=== PATIENT | male | born 1955 | race Caucasian/White ===

== ENCOUNTER → 2016-07-24 | Outpatient (CLI) | payer MEDICARE, OTHER ==
[~2016-07-24] MED LIST: ASPI325T6 PO; BUSPAR DIVIDOSE15 MG PO; BUSPAR10 MG PO; CELEXA40 MG PO; DESYREL 100MG100 MG PO; EFFEXOR 75M75 MG/TAB PO; EFFEXOR XR75 MG/CAP PO; EFFEXOR-XR150 MG PO; FLEXERIL 1010 MG/TAB PO; KLONOPIN 1MG1 MG PO; LAMICTAL 100MG100 MG PO; LAMICTAL200 MG PO; LIDODERM PATCH TP; METHADONE H10 MG/TAB PO; MINIPRESS 5M5 MG/CAP PO; MINIPRESS2 MG PO; NEURONTIN300 MG/CAP PO; NEURONTIN600 MG/TAB PO; NORCO 325 MG-101 TAB PO; NORCO 325 MG-7.1 TAB PO; PERIACTIN 4MG TA4 MG PO; PROAIR HFA0.09 MG/AC IH; PROZAC 20MG20 MG PO; RITE AID FISH1000 MG PO; VICODIN 5/5001 UDTAB PO; VISTARIL50 MG PO; XANAX 0.5MG0.5 MG PO; ZOCOR 20MG20 MG PO; ZOLOFT 100MG100 MG PO
== END ==
LOC: COL.RAD 14:21
DX: M25.561 Pain in right knee (principal); Z96.651 Presence of right artificial knee joint

== ENCOUNTER 2016-10-23 11:18 | Inpatient (IN) | payer MEDICARE, OTHER ==
[~2016-10-23] VITALS: Ht 193 cm; Wt 122.0 kg
[~2016-10-23 11:18] MED LIST changes: -BUSPAR DIVIDOSE15 MG PO; -EFFEXOR 75M75 MG/TAB PO; -EFFEXOR XR75 MG/CAP PO; -EFFEXOR-XR150 MG PO; -LAMICTAL 100MG100 MG PO; -LAMICTAL200 MG PO; -METHADONE H10 MG/TAB PO; -MINIPRESS 5M5 MG/CAP PO; -VISTARIL50 MG PO; -ZOCOR 20MG20 MG PO
[2016-10-29] VITALS (11 sets, daily range): BP systolic 78–106; BP diastolic 44–73; PULSE 64–84; TEMP 97.8–98.6
[2016-10-29 11:38] LABS: INR 1.2 (0.8-3.0); PROTHROMBIN TIME 13.4 SECONDS (9.7-12.8)
[2016-10-29] MEDS ORDERED: LAMICTAL200 MG PO (15:51)
[2016-10-29] MEDS ORDERED: NEURONTIN300 MG/CAP PO (15:51)
[2016-10-29] MEDS ORDERED: BUSPAR DIVIDOSE15 MG PO (15:52)
[2016-10-29] MEDS ORDERED: LAMICTAL 100MG100 MG PO (15:52)
[2016-10-29] MEDS ORDERED: VISTARIL50 MG PO (15:53)
[2016-10-29] MEDS ORDERED: KLONOPIN 1MG1 MG PO (15:54)
[2016-10-29] MEDS ORDERED: EFFEXOR-XR150 MG PO (15:54)
[2016-10-29] MEDS ORDERED: FLEXERIL 1010 MG/TAB PO (15:54)
[2016-10-29] MEDS ORDERED: EFFEXOR 75M75 MG/TAB PO (15:55)
[2016-10-29] MEDS ORDERED: MINIPRESS 5M5 MG/CAP PO (15:55)
[2016-10-29] MEDS ORDERED: DESYREL 100MG100 MG PO (15:55)
[2016-10-29] MEDS ORDERED: METHADONE H10 MG/TAB PO (15:56)
[2016-10-29] MEDS ORDERED: ZOCOR 20MG20 MG PO (15:56)
[2016-10-29] MEDS ORDERED: NORCO 325 MG-101 TAB PO (15:56)
[2016-10-29 16:38] LABS: HEMATOCRIT 40.5 % (42.0-52.0); HEMOGLOBIN 12.7 g/dl (13.5-18.0); MEAN CELL VOLUME 92 fl (80.0-100.0); MEAN CORPUSCULAR HEMOGLOBIN 29 pg (27.0-31.0); MEAN CORPUSCULAR HGB CONC 31 g/dl (33.0-37.0); MEAN PLATELET VOLUME 9.5 fl (7.4-10.4); PLATELET COUNT 261 K/mm3 (130-400); RED BLOOD COUNT 4.39 M/mm3 (4.20-5.60); REDCELL DISTRIBUTION WIDTH-CV 14.4 % (11.5-14.5); WHITE BLOOD COUNT 9.7 K/mm3 (4.8-10.8)
[2016-10-29 16:42] LABS: ADJUSTED CALCIUM 10.1 mg/dL (8.4-10.2); ALBUMIN 3.6 gm/dL (3.5-5.0); BILIRUBIN,TOTAL 0.6 mg/dL (0.0-1.0); CALCIUM 9.8 mg/dL (8.4-10.2); CREATININE, serum 1.69 mg/dL (0.66-1.25); POTASSIUM 5.1 mmol/L (3.4-5.0); TOTAL PROTEIN 6.8 gm/dL (6.4-8.2)
[2016-10-29] MEDS ORDERED: EFFEXOR XR75 MG/CAP PO (17:02)
[2016-10-30 01:15] VITALS: BP 137/97; PULSE 84; TEMP 97.1
[2016-10-30 04:48] VITALS: BP 94/50; PULSE 63; TEMP 98.5
[2016-10-30 09:47] VITALS: BP 121/92; PULSE 72; TEMP 98.4
== END 2016-10-30 16:41 | disposition home health service (06) | DRG 561 ==
LOC: SURG 10-29 07:30 → INPTSU 10-29 10:39 → SURG 10-29 12:30
PROVIDERS: Family Medicine; Internal Medicine Infectious Disease; Orthopaedic Surgery
PROC: 0S9C4ZZ Drainage of Right Knee Joint, Percutaneous Endoscopic Approach (ICD-10-PCS; principal; 2016-10-29 12:30)
DX: T84.53XA Infection and inflammatory reaction due to internal right knee prosthesis, initial encounter (principal); F17.210 Nicotine dependence, cigarettes, uncomplicated; F41.9 Anxiety disorder, unspecified
CPT/HCPCS: A9284; C1751; J0171; J0690; J0696; J1100; J1885; J2250; J2270; J2405; J2704; J3010; J3370; J7040; J7050

== ENCOUNTER → 2016-11-02 | Outpatient (REF) ==
[~2016-11-02] MED LIST changes: +BUSPAR DIVIDOSE15 MG PO; +EFFEXOR 75M75 MG/TAB PO; +EFFEXOR XR75 MG/CAP PO; +EFFEXOR-XR150 MG PO; +LAMICTAL 100MG100 MG PO; +LAMICTAL200 MG PO; +METHADONE H10 MG/TAB PO; +MINIPRESS 5M5 MG/CAP PO; +VISTARIL50 MG PO; +ZOCOR 20MG20 MG PO
== END ==
LOC: ZAIV 06:20
DX: Z01.89 Encounter for other specified special examinations (principal)

== ENCOUNTER → 2016-11-06 | Outpatient (CLI) | payer MEDICARE, OTHER ==
[2016-11-06 11:16] LABS: BASO % 0.3 % (0.0-2.0); EOS # 0.2 (0.0-0.7); EOS % 2.1 % (0-4.0); GRAN # 5.5 (1.4-6.5); GRAN % 69.8 % (42.2-75.2); HEMATOCRIT 37.4 % (42.0-52.0); LYMPH # 1.7 (1.2-3.4); LYMPH % 21.2 % (20.0-51.0); MEAN CELL VOLUME 92 fl (80.0-100.0); MEAN CORPUSCULAR HEMOGLOBIN 28 pg (27.0-31.0); MEAN CORPUSCULAR HGB CONC 31 g/dl (33.0-37.0); MEAN PLATELET VOLUME 9.2 fl (7.4-10.4); MONO # 0.5 (0.1-0.6); MONO % 6.3 % (1.7-9.3); PLATELET COUNT 178 K/mm3 (130-400); RED BLOOD COUNT 4.05 M/mm3 (4.20-5.60); REDCELL DISTRIBUTION WIDTH-CV 14.4 % (11.5-14.5); WHITE BLOOD COUNT 7.8 K/mm3 (4.8-10.8)
[2016-11-06 11:25] LABS: ADJUSTED CALCIUM 9.6 mg/dL (8.4-10.2); ALBUMIN 3.6 gm/dL (3.5-5.0); BILIRUBIN,TOTAL 0.6 mg/dL (0.0-1.0); C-REACTIVE PROTEIN 4.5 mg/dL (0.0-0.9); CALCIUM 9.3 mg/dL (8.4-10.2); CREATININE, serum 1.07 mg/dL (0.66-1.25); POTASSIUM 4.4 mmol/L (3.4-5.0); TOTAL PROTEIN 6.4 gm/dL (6.4-8.2)
[2016-11-06 11:26] LABS: HEMOGLOBIN 11.5 g/dl (13.5-18.0)
[2016-11-06 12:09] LABS: ERYTHROCYTE SEDIMENTATION RATE 26 mm/hr (0-30)
== END ==
LOC: COL.LAB 10:06
PROVIDERS: Internal Medicine Infectious Disease
DX: B99.9 Unspecified infectious disease (principal)